=== PATIENT | male | born 1990 | race Caucasian/White ===

== ENCOUNTER 2017-06-24 15:32 | Emergency (ER) | payer OTHER ==
[2017-06-24 15:37] VITALS: TEMP 98.2
--- NOTE | 2017-06-24 17:02 | EDPHY ---
General - History Smoking Status: Heavy smoker Narrative: CHIEF COMPLAINT: Eyelid laceration, head injury HISTORY OF PRESENT ILLNESS: Patient is playing soccer this afternoon when he collided heads with another person. Sustained a laceration to the right eyelid. Minimally pain near the laceration. No eye pain. No sensation of foreign body. No visual disturbance. No headache. No loss of consciousness. No nausea or vomiting. No neck pain. No injury elsewhere. Tetanus is up-to-date. No bleeding at this time. No other associated complaints or modifying factors. TIME OF INJURY: 2 hours prior to arrival TETANUS STATUS: Up-to-date MEDICAL/SURGICAL/SOCIAL HISTORY: No medical history or surgical history. Nonsmoker. Works at a restaurant here in [employer] REVIEW OF SYSTEMS: Ten systems reviewed and are negative unless otherwise noted in the HPI EXAMINATION General Appearance: Alert, no distress Head: normocephalic, atraumatic. Eyelid laceration as noted below. ENT: Extraocular eye movements are intact. No hyphema. No subconjunctival hemorrhage. Visual acute intact by confrontation. No painful movement of the eye. No nystagmus or dysconjugate gaze. There is a superficial laceration to the upper eyelid on the right. That is above the area of the globe. There is no bleeding. No exposure of the tarsal plate. No foreign body. Cardiovascular: Pulses normal throughout. Brisk cap refill Neurological: A&O, sensory symmetric, strength symmetric Skin: Warm and dry, no rash. 2 cm laceration to the right upper eyelid. Superficial. No exposure of the tarsal plate. No exposure of the muscle body. No foreign body. Extremities: Nontender, no pedal edema DIFFERENTIAL DIAGNOSES: Including but not limited to eyelid laceration, closed head injury MDM: 4:07 p.m. Laceration to the right upper eyelid above the globe. There is no compromise of the tarsal plate. Full EOMs intact. No visual disturbance. Visual acuity intact. Proceed with irrigation and closure. 4:48 p.m. Laceration of the right eyelid that has been repaired without complication. Full range of motion of the eyelid and extraocular movements intact postprocedure. Special care was taken not to so through the tarsal plate. Bacitracin applied. Apply bacitracin once daily for 3 days. Follow up here in 5-7 days for suture removal. Sooner for any signs of infection. He is comfortable with this plan and discharged home stable condition. PROCEDURE: Laceration repair Consent: Verbal Location: Right eyelid, upper Length of repair: 2 cm Complexity: Complex due to location Layer involvement: Single Anesthesia: Local. 1% lidocaine without epinephrine. 3 mL Irrigation: Extensive Debridement: None Procedure description: Following good anesthesia, the wound was copiously irrigated. Wound bed was explored and there is no foreign body noted. There was no injury to the tarsal plate. Special care was taken to avoid suturing through the tarsal plate. Wound borders were approximated well with good hemostasis. Tolerated well without complication. EOMs intact postprocedure. Symmetric movement of the levator palpebrae superioris postprocedure. Suture/Staple material: 7-0 prolene, 3 simple interrupted sutures Wound care: Routine as discussed Suture/Staple removal: 5-7 Days ED Precautions: Worsening pain. Erythema, edema, cyanosis, pallor, paresthesia or anesthesia. (Max Woodard) The patient was evaluated and managed by the physician him assistant. I have reviewed this chart and I agree with the findings and plan of care as documented , as indicated by my signature. I am the secondary supervising physician. ( Raina Reveles) - Objective Vital Signs: Initial Vital Signs Temperature (C) 36.8 C 06/24/17 15:34 Heart Rate 86 06/24/17 15:34 Respiratory Rate 17 06/24/17 15:34 Blood Pressure 128/74 H 06/24/17 15:34 O2 Sat (%) 97 06/24/17 15:34 O2 Delivery Mode Room Air Allergies/Adverse Reactions: No Known Allergies Allergy (Unverified 06/24/17 15:34) Home Medications: Medication Instructions Recorded NK [No Known Home Meds] 06/24/17 Departure - Departure Disposition: Home, Routine, Self-Care Clinical Impression: Eyelid laceration, right Qualifiers: Encounter type: initial encounter Qualified Code(s): S01.111A - Laceration without foreign body of right eyelid and periocular area, initial encounter Condition: Good Instructions: Care For Your Stitches (ED), Laceration (ED) Additional Instructions: 1. Apply ice for the next 1-2 days 2. Wound care as discussed 3. Return to the ED for suture removal in 5-7 days Referrals: NONE *PRIMARY CARE P,. [Primary Care Provider] - As per Instructions Obed Kong MD [Medical Doctor] - As per Instructions Physician,Emergency Dept, [Medical Doctor] - As per Instructions
[2017-06-24 17:09] VITALS: BP 118/72; PULSE 79; RESP 16; O2SAT 96
== END 2017-06-24 17:09 | disposition home or self-care (01) ==
PROC: 08QNXZZ Repair Right Upper Eyelid, External Approach (ICD-10-PCS; principal; 2017-06-24)
DX: S01.111A Laceration without foreign body of right eyelid and periocular area, initial encounter (principal); F17.200 Nicotine dependence, unspecified, uncomplicated; W51.XXXA Accidental striking against or bumped into by another person, initial encounter; Y99.8 Other external cause status; Y93.66 Activity, soccer

== ENCOUNTER 2017-09-21 19:47 | Emergency (ER) | payer OTHER ==
--- NOTE | 2017-09-21 20:08 | EDPHY ---
H & P Smoking Status: Heavy smoker Time Seen by Provider: 09/21/17 19:50 HPI/ROS: CHIEF COMPLAINT: Mental health hold for suicidal ideation HISTORY OF PRESENT ILLNESS: Patient arrives by police. They were called by a friend of his as the patient was making suicidal statements to his girlfriend and the reporting alliance party. He was noted to have guns in the house and so his friend called police who brought into the ER. Patient does admit to feeling suicidal on arrival and admits to alcohol. He has no medical complaints. He denies overdose or self injury today. REVIEW OF SYSTEMS: Eye: no change in vision ENT: no sore throat Cardiac: no chest pain or syncope Pulmonary: no cough or SOB Abdomen: no vomiting, diarrhea, abdominal pain Musculoskeletal: no back pain Skin: no rash Neuro: no headache Constitutional: no fever : no urinary symptoms A comprehensive 10 point review of systems is otherwise negative aside from elements mentioned in the history of present illness. PAST MEDICAL HISTORY: Negative Social history: Recent alcohol General Appearance: Alert and conversant, cooperative. Eyes: No scleral icterus. ENT, Mouth: Normal mucous membranes. Respiratory: Normal respiratory effort, breath sounds equal, lungs are clear to auscultation. Cardiovascular: Regular rate and rhythm. Gastrointestinal: Abdomen is soft and non tender. Neurological: Alert, ambulatory, slightly slurred speech, not ataxic. Was all 4 extremities. Skin: Warm and dry, no rashes. No lacerations. Musculoskeletal: No peripheral edema. Psychiatric: Not agitated. Emergency Department course/MDM: Arrives on a mental health hold. Plan for labs including ethanol, observation until clinically sober. Signed out to Zain at 2330 with plan for psychiatric evaluation when clinically sober. (Po Christine) Constitutional: Initial Vital Signs Temperature (C) 36.9 C 09/21/17 19:50 Heart Rate 92 09/21/17 19:50 Respiratory Rate 18 09/21/17 19:50 Blood Pressure 180/98 H 09/21/17 19:50 O2 Sat (%) 98 09/21/17 19:50 O2 Delivery Mode Room Air Allergies/Adverse Reactions: No Known Allergies Allergy (Unverified 09/21/17 20:26) Home Medications: Medication Instructions Recorded NK [No Known Home Meds] 06/24/17 Medical Decision Making Differential Diagnosis: Differential diagnosis considered for suicidal ideation including functional and major depression, situational depression, medication side effect, drugs and alcohol abuse. (Po Christine) I spoke with this patient after he had undergone a mental health evaluation. He is awake and alert. He is not intoxicated. He denies suicidality or homicidality to me. He has some insight into his alcohol abuse and clearly states that his alcohol use is a problem. However, he is not interested in inpatient treatment at this point in time. Treatment was offered. He is given information concerning resources available to him. I have lifted the mental health hold as I do not feel that he has a danger to himself or to others and I do not feel that he qualifies for mental health hold at this point in time. He is being discharged. He lives with his father. (Raina Reveles) Other Provider: 2300 26-year-old male signed out to me from Dr. Christine pending sober mental health evaluation. [address] Reveles pending over mental health evaluation. No issues during my care this patient overnight. (Дмитрий Pittman) - Data Points Laboratory Results: Laboratory Results 09/21/17 20:15 09/21/17 20:15 Departure - Departure Disposition: Home, Routine, Self-Care Clinical Impression: Alcohol abuse Alcohol intoxication Qualifiers: Complication of substance-induced condition: uncomplicated Qualified Code(s): F10.920 - Alcohol use, unspecified with intoxication, uncomplicated Condition: Good Instructions: Alcohol Intoxication (ED), Abuse of Alcohol (DC) Additional Instructions: Please use the resources that you have been given to obtain treatment for your alcohol abuse. Referrals: Clarke Mireles DO [Doctor of Osteopathy] - As per Instructions
[2017-09-21 20:23] LABS: PLATELET COUNT 216 10^3/uL (150-400)
[2017-09-22 08:51] VITALS: RESP 16; TEMP 98.6; O2SAT 95
[2017-09-22 11:00] VITALS: BP 143/78; PULSE 76
== END 2017-09-22 11:00 | disposition home or self-care (01) ==
DX: F10.129 Alcohol abuse with intoxication, unspecified (principal); F17.200 Nicotine dependence, unspecified, uncomplicated
CPT/HCPCS: 80305; G0480